=== PATIENT | male | born 1960 | race Caucasian/White ===

== ENCOUNTER 2018-01-10 05:53 | Inpatient (IN) | payer OTHER ==
[2018-01-10] MEDS ORDERED: FAMOTIDINE 20MG TABLET PO ONE (06:00)
[2018-01-10] MEDS ORDERED: ACETAMINOPHEN 1,000 MG/100 ML BTL IV ONE (06:00)
[2018-01-10] MEDS ORDERED: CEFAZOLIN 2 Gram 2 GM/50 ML BAG IVPB ONE (06:00)
[2018-01-10] MEDS ORDERED: METOCLOPRAMIDE 10 MG TABLET PO ONE (06:00)
[2018-01-10] MEDS ORDERED: MECLIZINE 25 MG TABLET PO ONE (06:00)
[2018-01-10] MEDS ORDERED: BUPIVACAINE 0.25% W/EPI MPF 30ML VIAL IVP ONE (10:21)
[2018-01-10] MEDS ORDERED: BUPIVACAINE LIPOSOME 266MG/20ML VIAL IV ONE (10:21)
[2018-01-10] MEDS ORDERED: TRANEXAMIC ACID 1,000 MG/10 ML ML IV ONE (10:21)
[2018-01-10] MEDS: OXYCODONE HCL 5 MG TABLET PO PRN ×3 (10:42→19:32)
[2018-01-10] MEDS ORDERED: OXYCODONE HCL 5 MG TABLET PO PRN (10:45)
[2018-01-10] MEDS ORDERED: ONDANSETRON HCL IV 4 MG/2 ML VIAL IVP PRN (10:45)
[2018-01-10] MEDS ORDERED: MAGNESIUM HYDROXIDE 30 ML UDC PO PRN (10:45)
[2018-01-10] MEDS ORDERED: ZOLPIDEM TARTRATE 5 MG TABLET PO PRN (10:45)
[2018-01-10] MEDS ORDERED: HYDROMORPHONE HCL 1 MG/ML SYRINGE IVP PRN (10:45)
[2018-01-10] MEDS ORDERED: METOCLOPRAMIDE HCL 10 MG/2 ML VIAL IVP PRN (10:45)
[2018-01-10] MEDS ORDERED: TRAMADOL HCL 50 MG TABLET PO PRN (10:45)
[2018-01-10] MEDS ORDERED: OXYCODONE/APAP 7.5MG/325MG TABLET PO PRN (10:45)
[2018-01-10] MEDS ORDERED: SENNOSIDES/DOCUSATE SODIUM UD CAPSULE PO PRN (10:45)
[2018-01-10] MEDS ORDERED: AL HYDROX/MAG HYDROX 30ML UD PO PRN (10:45)
[2018-01-10] MEDS ORDERED: DIPHENHYDRAMINE HCL 25 MG CAPSULE PO PRN (10:45)
[2018-01-10] MEDS ORDERED: TRANEXAMIC ACID 1,000 MG in 0.9 % SODIUM CHLORIDE 100ML 100 ML IVPB ONE (11:00)
[2018-01-10] MEDS ORDERED: HYDROMORPHONE HCL 2 MG/ML VIAL IV ONE (13:07)
--- NOTE | 2018-01-10 13:10 | Operative Note ---
DATE OF SURGERY: 01/10/2018 Surgeon: Jethro Wang DO PREOPERATIVE DIAGNOSIS: Osteoarthritis of the right knee. POSTOPERATIVE DIAGNOSIS: Osteoarthritis of the right knee. OPERATION: Right total knee arthroplasty. Anesthesia: Spinal and general. PROCEDURE: This 57-year-old male was taken to the operating room and placed in the supine position on the operating room table. Spinal anesthetic was induced, but because of patchy uptake of the block, a general anesthetic was also administered. The right lower extremity was elevated, prepped with Hibiclens and draped in the usual sterile fashion. It was exsanguinated and the tourniquet inflated to 300 mmHg. All scrubbed personnel wore personal isolation suits. An anterior longitudinal midline incision was made, followed by a medial parapatellar arthrotomy incision. An intracondylar drill hole was made for the intramedullary alignment dolly and a 6 degree valgus 9 mm cut was made in the distal femur. Wafer of bone was removed. The sizing jig was affixed and a size 70 was seen to be the appropriate size. The 4-in-1 cutting block was then pinned in 3 degrees of external rotation and the appropriate cuts were made. We then directed our attention to the proximal tibia. An extramedullary alignment guide was used to cut the proximal tibia, referencing a 10 mm cut off the lateral tibial plateau. The cutting block was affixed and a 3 degree posterior slope cut was made, after the appropriate alignment had been assured. The wafer of bone was removed. Remnants of the menisci and osteophytes were removed from the posterior aspect of the joint. The patella was subsequently cut and restored to anatomic heights with the 37 x 8.6 mm trial. The stem punch was used on the proximal tibia and the wound copiously irrigated with pulse lavage lactated Ringer's solution. The trial components were inserted and a 10 mm bearing seen to be the appropriate size, giving us full extension, full flexion with good stability. All trial components were then removed and the wound again irrigated with lactated Ringer's solution. Exparel was injected into the posterior medial and lateral corners of the joint and after the insertion of the final components, the remainder was injected into the periosteum and joint capsule , the proximal tibia, and distal femur. All bony surfaces were dried and all components were cemented and excess cement removed after the insertion of each component. Initially the tibial base plate was cemented into place after the stem punch had been used in the proximal tibia and a size 79 determined to be the appropriate size. The 10 mm bearing was affixed and the femoral component cemented, followed by the patella. Once the cement had hardened, the knee was taken through range of motion and the components appeared to be stable. A drain was placed through a separate stab incision. The wound was then closed with 2 Vicryl to reapproximate the joint capsule and quadriceps. The subcutaneous tissue closed with 0 Vicryl and the skin was stapled. Sterile dressings with a Polar Care were applied. The patient was taken to the recovery room in satisfactory condition. The drain had been placed through a separate stab incision. Final components inserted were: A [employer] Vanguard size 70 cruciate retaining femur, 79 tibia base plate, a 10 mm anterior stabilized E1 bearing, and a 37 x 8.6 mm patella. GROSS PATHOLOGY: This patient demonstrated advanced osteoarthritis of the medial compartment with the medial femoral condyle being entirely denuded of articular cartilage and the medial half of the medial tibial plateau also had no articular cartilage. The patella also demonstrated advanced degenerative changes with grade 2 changes noted in the tibial side of the joint. A tear of the medial meniscus was also evident. MTDD
[2018-01-10] MEDS: OXYCODONE/APAP 7.5MG/325MG TABLET PO PRN ×2 (13:45→21:46)
[2018-01-10] MEDS ORDERED: HYDROMORPHONE HCL 2 MG/ML VIAL IV PRN (14:15)
[2018-01-10] MEDS: RINGERS SOLUTION,LACTATED 1,000 ML IV SCH (14:23)
[2018-01-10] MEDS: CEFAZOLIN 2 Gram 2 GM/50 ML BAG IVPB SCH ×2 (15:11→22:29)
[2018-01-10] MEDS: FONDAPARINUX 2.5 MG/0.5 ML SYR SQ SCH (15:12)
--- NOTE | 2018-01-10 15:32 | Rehab Evaluation ---
Patient Information - Patient Information Diagnosis: OA right knee Ordered Treatment: PT Evaluate and Treat Status: Initial Evaluation Surgery: Yes (TKA right) Date of Surgery: 01/10/18 Past Medical/Surgical Hx: PAST MEDICAL/SURGICAL HISTORY Past Surgical History left ACL thyroid sx PMH - Respiratory Hx Respiratory Disorders No PMH - Cardiovascular Hx Cardiovascular Disorders No Exercise Tolerance Good PMH - Neuro Hx Neurological Disorders No PMH - GI Hx Gastrointestinal Disorders Yes Hx Gastroesophageal Reflux Yes: occassionally PMH - Hx Genitourinary Disorders No PMH - Endocrine Hx Endocrine Disorders Yes Hx Thyroid Disease Yes: para thyroid removal one from each side Calcium too high PMH - Musculoskeletal Hx Musculoskeletal Disorders Yes Hx Arthritis Yes Comment: right iknee pain PMH - Psych Hx Psychiatric Problems No PMH - Hematology/Oncology Hx Hematology/Oncology No Disorders Social History: Detail (Lives with girlfriend in two story house. Retired. Has 6 steps to get into house, no rails. Will stay on first floor. Tub/shower combo and standard toilet seat. Girlfriend will help him at home and has therapy set- up already, girlfriend's daughter will drive him (best vehicle for that).) Precautions: [place], Fall - Time With Patient Total Time Spent With Patient (Min): 30 Treatment Procedures: Detail (Patient seen in room, sitting up in bed. After removed CPM, able to work through exercises for knee: quad, ham and glut sets, heel slides, ankle pumps and assisted SLR. Supine to sit with assist with right LE, pivoted out to edge of bed, sat edge of bed without issue, sit to stand with CGA, ambulated with FWW and WBAT to door of room then out of room and did a loop in marcum and came back into room. Back into bed with very minimal assist with right LE, replaced cryocuff, CPM, compressive stockings and pulled tray table close, call light close.) Subjective Information - Subjective Information Per Patient Objective Data - Pain Pain Present: Yes Pain Scale Used: Numeric (1 - 10) (3/10) - Mental Status Patient Orientation: Oriented x3 - Visual Perception Appears within normal limits for therapeutic activities - ROM Within normal limits (except right knee 0 degrees extension to about 60 degrees flexion.) - Strength/Tone Within normal limits (except quads a little weak: 3-/5) - Coordination Appears within normal limits for therapeutic activities - Transfers Needs Assist (Needed slight assist with right LE only.) - Balance Balance Sitting: Good Balance Standing: Good - Sensation Intact - Gait Detail (Used FWW with WBAT today and good technique with walker.) Therapy Assessment - Therapy Assessment Detail (Patient doing quite well. Meds seem to be controlling pain, able to bend knee well even out of CPM. Mobility fairly good so far.) Patient Education - Patient Education Teaching Topic: Equipment Use, Exercise/Activity Response: Return Demonstration Teaching Method: Demonstration Teaching Recipient: Patient, Family Barriers To Learning: None Problem List - Problem List Physical Therapy Problem List: Detail (Decreased independence with mobility, decreased functional distance ambulating, decreased function on steps, decreased ROM knee and strength as expected after surgery.) Goals - Goals Physical Therapy Goals: 1. Patient will be independent with mobility into/ out of bed. 2. Patient will increase distance ambulating to community distances/ household distances. 3. Patient will be able to negotiate steps to get into home with proper assist and device. Prognosis - Prognosis Good (Patient doing well so far.) Plan - Plan Physical Therapy Plan: Continue PT day after surgery BID then will reassess based on patient function and if has met goals if will be seen after that.
[2018-01-11] MEDS: TRAMADOL HCL 50 MG TABLET PO PRN ×3 (01:00→14:45)
[2018-01-11] MEDS: RINGERS SOLUTION,LACTATED 1,000 ML IV SCH ×2 (04:57→05:31)
[2018-01-11 06:31] LABS: HEMATOCRIT 37.4 % (42.0-52.0); HEMOGLOBIN 11.9 gm/dl (14.0-18.0); MEAN CELL VOLUME 79.4 fl (81-97); MEAN CORPUSCULAR HEMOGLOBIN 25.2 pg (27-33); MEAN CORPUSCULAR HGB CONC 31.8 g/dl (32-36); PLATELET COUNT 289 K/uL (130-400); RED BLOOD COUNT 4.71 M/uL (4.40-5.70); RED CELL DISTRIBUTION WIDTH 14.1 % (11.5-14.5); WHITE BLOOD COUNT W/O DIFF 13.6 K/uL (4.2-12.2)
[2018-01-11] MEDS: CEFAZOLIN 2 Gram 2 GM/50 ML BAG IVPB SCH (06:53)
[2018-01-11] MEDS: OXYCODONE/APAP 7.5MG/325MG TABLET PO PRN (10:05)
[2018-01-11] MEDS ORDERED: ACETAMINOPHEN 325 MG TAB PO PRN (10:45)
--- NOTE | 2018-01-11 11:13 | Physical Therapy Tx Note ---
Physical Therapy Tx Note - Treatment Note Tolerated: Good Total Time Spent With Patient: 30 Physical Therapy Tx Note: Detail (The patient was laying in bed upon arrival. The patient was able to transfer from supine to sit and transfer from sit to stand independently. The patient was able to ambulate from his room to the nurse 's station and back (26 ft. x2) using WBAT on R and 2WW . The patient was then able to ascend/descend 3 stairs with min. assist x1 of his girlfriend. He required some verbal cues for proper gait pattern on the stairs and placement of the walker. The patient's HEP was reviewed upon return to his room. The patient was instructed to complete 10 reps of each exercise, 1-2x/day. The HEP included: Ankle Pumps, Heel Slides, LAQ, and SLR. The patient was able to return demonstration and verbalized understanding. The patient was left sitting at the EOB with his girlfriend and his call light in reach) Physical Therapy Problem List: Detail (Decreased independence with mobility, decreased functional distance ambulating, decreased function on steps, decreased ROM knee and strength as expected after surgery.) Physical Therapy Goals: 1. Patient will be independent with mobility into/ out of bed. 2. Patient will increase distance ambulating to community distances/ household distances. 3. Patient will be able to negotiate steps to get into home with proper assist and device. Physical Therapy Plan: Continue PT day after surgery BID then will reassess based on patient function and if has met goals if will be seen after that.
[2018-01-11] MEDS ORDERED: MIDAZOLAM HCL 2MG/2ML VIAL IV ONE (13:35)
[2018-01-11] MEDS ORDERED: SEVOFLURANE 250 ML INH ONE (13:35)
[2018-01-11] MEDS ORDERED: FENTANYL PF 100MCG/2ML VIAL IV ONE (13:35)
[2018-01-11] MEDS ORDERED: HYDROMORPHONE HCL 2 MG/ML VIAL IV ONE (13:35)
[2018-01-11] MEDS ORDERED: ONDANSETRON HCL IV 4 MG/2 ML VIAL IVP ONE (13:35)
--- NOTE | 2018-01-11 13:44 | Rehab Evaluation ---
Patient Information - Patient Information Diagnosis: OA right knee Ordered Treatment: OT Evaluate and Treat Status: Initial Evaluation Surgery: Yes (TKA right) Date of Surgery: 01/10/18 Past Medical/Surgical Hx: PAST MEDICAL/SURGICAL HISTORY Past Surgical History left ACL thyroid sx PMH - Respiratory Hx Respiratory Disorders No PMH - Cardiovascular Hx Cardiovascular Disorders No Exercise Tolerance Good PMH - Neuro Hx Neurological Disorders No PMH - GI Hx Gastrointestinal Disorders Yes Hx Gastroesophageal Reflux Yes: occassionally PMH - Hx Genitourinary Disorders No PMH - Endocrine Hx Endocrine Disorders Yes Hx Thyroid Disease Yes: para thyroid removal one from each side Calcium too high PMH - Musculoskeletal Hx Musculoskeletal Disorders Yes Hx Arthritis Yes Comment: right iknee pain PMH - Psych Hx Psychiatric Problems No PMH - Hematology/Oncology Hx Hematology/Oncology No Disorders Premorbid Status: Detail (Pt lives with girlfriend in a 2 story house, his bedroom in on the second floor. He has 6 steps, no railing at the entrance. He is planning to stay on the first floor initially. Pt has a tub/shower combination, no seat or grab bars and a standard height toilet, no grab bars. His girlfriend will assist with home mgmt, meal prep and laundry. He has a 2 wheeled walker.) Social History: Detail (Supportive girlfriend.) Precautions: [place], Fall - Time With Patient Total Time Spent With Patient (Min): 30 Treatment Procedures: Detail (OT eval low complexity) Subjective Information - Subjective Information Per Patient Objective Data - Pain Pain Present: Yes (01/26) - Mental Status Patient Orientation: Oriented x3 - Visual Perception Appears within normal limits for therapeutic activities - ROM Within normal limits (Chepe UE AROM WNL) - Strength/Tone Within normal limits (Chepe UE strength WNL) - Coordination Appears within normal limits for therapeutic activities - Bed Mobility Independent (Ind with supine to sit) - Transfers Independent (Ind with sit to stand) - Balance Balance Sitting: Good Balance Standing: Good - Sensation Intact - ADL's/IADL's Detail (Pt educated and demonstrated learning of modified LE dressing techniques and verbalized understanding of shower safety and IADL modifications. ) Therapy Assessment - Therapy Assessment Detail (Pt Ind with LE dressing, WNL UE function and functional mobility.) Problem List - Problem List Physical Therapy Problem List: Detail (Decreased independence with mobility, decreased functional distance ambulating, decreased function on steps, decreased ROM knee and strength as expected after surgery.) Occupational Therapy Problem List: Detail (No current OT problems identified.) Goals - Goals Physical Therapy Goals: 1. Patient will be independent with mobility into/ out of bed. 2. Patient will increase distance ambulating to community distances/ household distances. 3. Patient will be able to negotiate steps to get into home with proper assist and device. Occupational Therapy Goals: No cuurent OT goals identified. Prognosis - Prognosis Good Plan - Plan Physical Therapy Plan: Continue PT day after surgery BID then will reassess based on patient function and if has met goals if will be seen after that. Occupational Therapy Plan: No further IP OT recommended at this time. Thank you for this referral.
--- NOTE | 2018-01-11 14:20 | Physical Therapy Tx Note ---
Physical Therapy Tx Note - Treatment Note Tolerated: Good Total Time Spent With Patient: 15 Physical Therapy Tx Note: Detail (The patient was laying in bed upon arrival. The patient was able to transfer from supine to sit independently, and was able to transfer from sit to stand independently. The patient was also able to put his shoes on in standing without assistance. He was able to walk from his room to the nurse's station with supervision (about 30 feet). He was then able to ascend and descend 3 stairs with CGA x1 and some verbal cues for proper walker placement on steps. It was determined that he will use another entrance into his home that has less steps, as the planned entrance had 6 steps. He was able to ambulate back to his room from the nurse's station with supervision, and was independent with transfers back to bed. He was left sitting at the EOB with his girlfriend present and call light in reach.) Physical Therapy Problem List: Detail (Decreased independence with mobility, decreased functional distance ambulating, decreased function on steps, decreased ROM knee and strength as expected after surgery.) Physical Therapy Goals: 1. Patient will be independent with mobility into/ out of bed - MET. 2. Patient will increase distance ambulating to community distances/household distances - Household distances - MET. 3. Patient will be able to negotiate steps to get into home with proper assist and device - MET Prognosis: Good Physical Therapy Plan: The patient has met current inpatient physical therapy goals. Will continue PT in the outpatient setting beginning next week.
[2018-01-11] MEDS: FONDAPARINUX 2.5 MG/0.5 ML SYR SQ SCH (14:49)
--- NOTE | 2018-01-14 10:40 | Discharge Summary ---
DATE OF ADMISSION: 01/10/2018 DATE OF DISCHARGE: 01/11/2018 SURGEON: Jethro Wang DO ADMITTING DIAGNOSIS: Osteoarthritis of the right knee. DISCHARGE DIAGNOSIS: Osteoarthritis of the right knee. OPERATIVE PROCEDURE: Elective right total knee arthroplasty. HISTORY OF PRESENT ILLNESS: This 57-year-old male was admitted to the hospital for elective total knee arthroplasty and tolerated the operative procedure well. The patient had the drain removed the first postoperative day and cleared physical therapy. The pain was controlled, no sign of DVT. He was discharged with instructions to follow up in the clinic in 2 weeks for staple removal. He will have outpatient physical therapy. Routine wound care instructions were given. He will take aspirin 325 mg daily, Percocet 7.5/325, 1 or 2 every 6 hours as necessary for pain, alternating with Tramadol 50 mg 1 or 2 every 6 hours as necessary for pain. He was given 60. He will wear his VARINDER hose during the day and remove them at night. Use the Polar Care device as needed. DAMIAN
== END 2018-01-11 15:15 | disposition home or self-care (01) | DRG 470 ==
LOC: MEDSURG 05:53
PROVIDERS: ADMIT Orthopaedic Surgery; ATTEND Orthopaedic Surgery
PROC: 0SRC069 Replacement of Right Knee Joint with Oxidized Zirconium on Polyethylene Synthetic Substitute, Cemented, Open Approach (ICD-10-PCS; principal; 2018-01-10 08:00)
DX: M17.11 Unilateral primary osteoarthritis, right knee (principal)
CPT/HCPCS: 85025; 93005; 93010; 94761; 97110; 97165; 97530; J2405; J7120

== ENCOUNTER 2018-09-13 09:00 | Inpatient (IN) | payer OTHER ==
[2018-09-19] MEDS ORDERED: FAMOTIDINE 20MG TABLET PO ONE (06:00)
[2018-09-19] MEDS ORDERED: METOCLOPRAMIDE 10 MG TABLET PO ONE (06:00)
[2018-09-19] MEDS ORDERED: CELECOXIB 100 MG CAPSULE PO ONE (06:00)
[2018-09-19] MEDS ORDERED: MECLIZINE 25 MG TABLET PO ONE (06:00)
[2018-09-19] MEDS ORDERED: HYDROCODONE/APAP 5/325MG TABLET PO PRN ×2 (09:44)
[2018-09-19] MEDS ORDERED: OXYCODONE HCL/APAP 5MG/325MG TABLET PO PRN (09:44)
[2018-09-19] MEDS ORDERED: SENNOSIDES/DOCUSATE SODIUM UD CAPSULE PO PRN (09:45)
[2018-09-19] MEDS ORDERED: NALOXONE 0.4 MG/1 ML VIAL IVP PRN (09:45)
[2018-09-19] MEDS ORDERED: MAGNESIUM HYDROXIDE 30 ML UDC PO PRN (09:45)
[2018-09-19] MEDS ORDERED: DIPHENHYDRAMINE HCL 25 MG CAPSULE PO PRN (09:45)
[2018-09-19] MEDS ORDERED: ONDANSETRON HCL IV 4 MG/2 ML VIAL IVP PRN (09:45)
[2018-09-19] MEDS ORDERED: ZOLPIDEM TARTRATE 5 MG TABLET PO PRN (09:45)
[2018-09-19] MEDS ORDERED: AL HYDROX/MAG HYDROX 30ML UD PO PRN (09:45)
[2018-09-19] MEDS ORDERED: TRAMADOL HCL 50 MG TABLET PO PRN (09:45)
[2018-09-19] MEDS ORDERED: METOCLOPRAMIDE HCL 10 MG/2 ML VIAL IVP PRN (09:45)
[2018-09-19] MEDS: CEFAZOLIN 2 Gram 2 GM/50 ML BAG IVPB ONE ×2 (09:53→15:49)
[2018-09-19] MEDS: RINGERS SOLUTION,LACTATED 1,000 ML IV SCH ×2 (10:57→23:03)
[2018-09-19] MEDS ORDERED: TRANEXAMIC ACID 1,000 MG in 0.9 % SODIUM CHLORIDE 100ML 100 ML IVPB ONE (11:00)
[2018-09-19] MEDS ORDERED: BUPIVACAINE 0.25% W/EPI MPF 30ML VIAL IVP ONE (11:01)
[2018-09-19] MEDS: HYDROMORPHONE HCL 2 MG/ML VIAL IV PRN ×3 (11:19→18:45)
[2018-09-19] MEDS ORDERED: LIDOCAINE 2% MDV (20MG/ML) 20ML VIAL IV ONE (11:33)
[2018-09-19] MEDS ORDERED: FENTANYL PF 100MCG/2ML VIAL IV ONE (11:33)
[2018-09-19] MEDS ORDERED: PROPOFOL 10 MG/ML VIAL IV ONE ×2 (11:33→15:12)
[2018-09-19] MEDS ORDERED: MIDAZOLAM HCL 2MG/2ML VIAL IV ONE (11:33)
[2018-09-19] MEDS ORDERED: RINGERS SOLUTION,LACTATED 1,000 ML IV PRN (12:20)
[2018-09-19] MEDS: OXYCODONE HCL/APAP 5MG/325MG TABLET PO PRN ×2 (13:27→20:24)
[2018-09-19] MEDS ORDERED: ROPIVACAINE HCL (NAROPIN) /PF 5MG/ML 20ML VIAL IV ONE (13:37)
[2018-09-19] MEDS ORDERED: BUPIVACAINE LIPOSOME 266MG/20ML VIAL IV ONE (13:37)
[2018-09-19] MEDS ORDERED: DEXAMETHASONE 4 MG/ML 1ML VIAL IVP ONE (13:37)
--- NOTE | 2018-09-19 14:25 | Rehab Evaluation ---
Patient Information - Patient Information Diagnosis: OA L knee Ordered Treatment: PT Evaluate and Treat Status: Initial Evaluation Surgery: Yes (L TKA) Date of Surgery: 09/19/18 History: Detail (Pt experienced progressive degeneration of L knee. L TKA was a planned procedure.) Past Med/Negrita Hx Detail: Detail Past Medical/Surgical Hx: PAST MEDICAL/SURGICAL HISTORY Past Surgical History RTKA 01-10-18 left ACL thyroid sx PMH - Respiratory Hx Respiratory Disorders No PMH - Cardiovascular Hx Cardiovascular Disorders No Exercise Tolerance Good PMH - Neuro Hx Neurological Disorders No PMH - GI Hx Gastrointestinal Disorders Yes Hx Gastroesophageal Reflux Yes: occassionally PMH - Hx Genitourinary Disorders No PMH - Endocrine Hx Endocrine Disorders Yes Hx Thyroid Disease Yes: para thyroid removal one from each side Calcium too high PMH - Musculoskeletal Hx Musculoskeletal Disorders Yes Hx Arthritis Yes Comment: left knee pain PMH - Psych Hx Psychiatric Problems No PMH - Hematology/Oncology Hx Hematology/Oncology No Disorders Premorbid Status: Detail (Pt had undergone R TKA in Dec 2017 with a good outcome.) Social History: Detail (Pt lives in two story home with significant other. Pt has 6 steps to enter with a handrail on the L side. Pt has tub/shower and standard toilet without grab bars. Pt currently owns a RW and a cane.) Precautions: [place], Fall - Time With Patient Total Time Spent With Patient (Min): 50 Treatment Procedures: Detail (PT evaluation, mobility training, and initiated gait and Ther Ex.) Subjective Information - Subjective Information Per Patient (Pt reports that he has sensation to his legs, and has minimal pain. ) Objective Data - Pain Pain Present: Yes Pain Intensity: 5 Pain Scale Used: Numeric (1 - 10) - Mental Status Patient Orientation: Oriented x3 - Visual Perception Appears within normal limits for therapeutic activities - ROM Not within normal limits (Decreased L knee flexion and extension. Pt currently on CPM set 0-60 degrees.) - Strength/Tone Not within normal limits (Decreased L hip flexion, knee flexion/extension.) - Coordination Appears within normal limits for therapeutic activities - Bed Mobility Needs Assist (Pt performed sup<>sit with use of bed rails, overhead trapeze, HOB elevated 30 degrees and min A for LLE assist.) - Transfers Needs Assist (Pt performed sit<>stand with RW and min A for balance and steadying. Verbal cues given for technique.) - Balance Balance Sitting: Good Balance Standing: Good (Good standing balance with RW, however, pt demonstrated poor standing balance without UE support.) - Sensation Intact (Intact with light touch.) - Gait Detail (Pt amb 100' with RW and CGA/min A for steadying and safety. Pt amb with step-to pattern, decreased weight shift to L, and heavy reliance on UE. Pt without LOB or knee buckling. Reported mild lightheadedness that resolved.) - Special Tests No Therapy Assessment - Therapy Assessment Detail (Strength and ROM deficits consistant with procedure. Pt is a good candidate for PT.) Patient Education - Patient Education Teaching Topic: Equipment Use, Exercise/Activity, Precautions Response: Verbalize Understanding Teaching Method: Discussion Teaching Recipient: Patient, Significant Other Barriers To Learning: None Problem List - Problem List Physical Therapy Problem List: Detail (Pt requires assist with bed mobility/ transfers. Pt demonstrates impaired gait mechanics.) Goals - Goals Physical Therapy Goals: 1) Pt will perform bed mobility without use of bed rails and SBA for safety. 2) Pt will perform sit<>stand with supervision for safety. 3) Pt will amb 150' with RW and CGA for safety. 4) Pt will ascend/ descend 6 steps with 1 UE support and min A for steadying and safety. 5) Pt will demonstrate good understanding of HEP. Prognosis - Prognosis Good Plan - Plan Physical Therapy Plan: Pt will be seen 1-2 times tomorrow to address current impairments to facilitate safe return to home.
[2018-09-19] MEDS: CEFAZOLIN 2 Gram 2 GM/50 ML BAG IVPB SCH ×2 (15:56→23:03)
[2018-09-19] MEDS: ASPIRIN 325 MG TAB ENTERIC-COATED PO SCH (22:12)
[2018-09-19] MEDS: TRAMADOL HCL 50 MG TABLET PO PRN (23:02)
[2018-09-20] MEDS: OXYCODONE HCL/APAP 5MG/325MG TABLET PO PRN ×2 (02:05→08:03)
[2018-09-20] MEDS: RINGERS SOLUTION,LACTATED 1,000 ML IV SCH (05:34)
[2018-09-20 06:23] LABS: HEMATOCRIT 36.5 % (42.0-52.0); HEMOGLOBIN 11.8 gm/dl (14.0-18.0); MEAN CELL VOLUME 78.5 fl (81-97); MEAN CORPUSCULAR HGB CONC 32.3 g/dl (32-36); PLATELET COUNT 241 K/uL (130-400); RED BLOOD COUNT 4.65 M/uL (4.40-5.70); WHITE BLOOD COUNT W/O DIFF 16.7 K/uL (4.2-12.2)
[2018-09-20 06:28] LABS: MEAN CORPUSCULAR HEMOGLOBIN 25.3 pg (27-33)
[2018-09-20] MEDS: CEFAZOLIN 2 Gram 2 GM/50 ML BAG IVPB SCH (06:33)
[2018-09-20] MEDS ORDERED: ACETAMINOPHEN 325 MG TAB PO PRN (09:45)
[2018-09-20] MEDS ORDERED: CELECOXIB 100 MG CAPSULE PO SCH (10:00)
--- NOTE | 2018-09-20 10:02 | Rehab Evaluation ---
Patient Information - Patient Information Diagnosis: OA L knee Ordered Treatment: OT Evaluate and Treat Status: Initial Evaluation Surgery: Yes (L TKA) Date of Surgery: 09/19/18 History: Detail (Pt experienced progressive degeneration of L knee. L TKA was a planned procedure.) Past Medical/Surgical Hx: PAST MEDICAL/SURGICAL HISTORY Past Surgical History RTKA 01-10-18 left ACL thyroid sx PMH - Respiratory Hx Respiratory Disorders No PMH - Cardiovascular Hx Cardiovascular Disorders No Exercise Tolerance Good PMH - Neuro Hx Neurological Disorders No PMH - GI Hx Gastrointestinal Disorders Yes Hx Gastroesophageal Reflux Yes: occassionally PMH - Hx Genitourinary Disorders No PMH - Endocrine Hx Endocrine Disorders Yes Hx Thyroid Disease Yes: para thyroid removal one from each side Calcium too high PMH - Musculoskeletal Hx Musculoskeletal Disorders Yes Hx Arthritis Yes Comment: left knee pain PMH - Psych Hx Psychiatric Problems No PMH - Hematology/Oncology Hx Hematology/Oncology No Disorders Premorbid Status: Detail (Pt had undergone R TKA in Dec 2017 with a good outcome.) Social History: Detail (Pt lives in a two story home with significant other. Pt has 4 steps to enter with a handrail on the L side part way up. His bedroom is on the second floor. Pt has a tub/shower and standard toilet without grab bars. Pt currently owns a 2 wheeled walker, commode and a cane. His significant other is responsible for home mgmt, meal prep and laundry.) Precautions: [place], Fall - Time With Patient Total Time Spent With Patient (Min): 30 Treatment Procedures: Detail (OT eval low complexity) Subjective Information - Subjective Information Per Patient Objective Data - Pain Pain Present: Yes (01/26) - Mental Status Patient Orientation: Oriented x3 - Visual Perception Appears within normal limits for therapeutic activities - ROM Within normal limits (Chepe UE AROM WNL) - Strength/Tone Within normal limits (Chepe UE strength WNL) - Coordination Appears within normal limits for therapeutic activities - Bed Mobility Independent (Ind with supine to sit) - Transfers Independent (Ind with sit to stand) - Balance Balance Sitting: Good Balance Standing: Good - Sensation Intact - Gait Detail (Pt ambulating in room with 2 wheeled walker Indly.) - ADL's/IADL's Detail (Pt educated and able to demonstrate modified LE dressing techniques including doffing briefs, donning boxer shorts, sweatpants and slip on tennis shoes. Reviewed VARINDER hose techniques, pt and S.O. verbalized learning. Pt has no concerns about shower set up.) Therapy Assessment - Therapy Assessment Detail (Pt safe and Ind with modified LE dressing techniques.) Problem List - Problem List Physical Therapy Problem List: Detail (Pt requires assist with bed mobility/ transfers. Pt demonstrates impaired gait mechanics.) Occupational Therapy Problem List: Detail (No current OT problems identified.) Goals - Goals Physical Therapy Goals: 1) Pt will perform bed mobility without use of bed rails and SBA for safety. 2) Pt will perform sit<>stand with supervision for safety. 3) Pt will amb 150' with RW and CGA for safety. 4) Pt will ascend/ descend 6 steps with 1 UE support and min A for steadying and safety. 5) Pt will demonstrate good understanding of HEP. Occupational Therapy Goals: No current OT goals identified at this time. Prognosis - Prognosis Good Plan - Plan Physical Therapy Plan: Pt will be seen 1-2 times tomorrow to address current impairments to facilitate safe return to home. Occupational Therapy Plan: No further IP OT goals identified. Thank you for this referral.
[2018-09-20] MEDS: ASPIRIN 325 MG TAB ENTERIC-COATED PO SCH (10:17)
--- NOTE | 2018-09-20 10:20 | Operative Note ---
DATE OF SURGERY: 09/19/2018 Surgeon: Jethro Wang DO PREOPERATIVE DIAGNOSIS: Primary osteoarthritis of the left knee. POSTOPERATIVE DIAGNOSIS: Primary osteoarthritis of the left knee. OPERATION: Left total knee arthroplasty. Anesthesia: Spinal. PROCEDURE: This 57-year-old male was taken to the operating room and placed in the supine position on the operating room table. Spinal anesthesia was induced by the Department of Anesthesia. Following satisfactory anesthetic, the left lower extremity was elevated, it was prepped with Hibiclens and draped in the usual sterile fashion. It was exsanguinated and the tourniquet inflated to 300 mmHg. All scrubbed personnel wore personal isolation suits. An anterior longitudinal midline incision was made, utilizing the previous incision from the ACL reconstruction and the soft tissue was dissected to expose the extensor mechanism. A medial parapatellar arthrotomy incision was performed. The intracondylar drill hole was used for the intramedullary alignment dolly and a 6 degree valgus 9 mm cut was made in the distal femur and the wafers of bone were removed. Subsequently, the sizing jig was affixed and pinned in 3 degrees of external rotation. The appropriate cuts were made and the wafer of bone was removed. The extra-medullary tibia guide was used to set the cutting block for the proximal tibial cut. We referenced a 10 mm cut off the lateral tibial plateau, however, it was necessary for us to take an additional 2 mm of bone, and even this wasn't quite enough, therefore it required an additional 2 mm, so a total of 14 removed and this got us down to what appeared to be healthy subchondral bone, but still extremely sclerotic. A 3 degree posterior slope cut was made. Remnants of the menisci and osteophytes were removed from the posterior aspect of the joint. Because the interference screw from previous ACL reconstruction was in the way, it was necessary for us to remove that screw so the anterior aspect of the tibia was exposed to remove the Arthrex screw in the proximal tibia. This was backed out without difficulty and the wound copiously irrigated with pulse lavage and lactated Ringer's solution. The trial components were inserted and a size 70 femur 83 tibia and a 10 mm poly with a 37 x 8.6 mm patella trial, gave us mu-ism of anatomic height of the patella and stability of the knee throughout. The knee trial components were removed and the wound again copiously irrigated with pulse lavage and lactated Ringer's solution. A stem punch was used for the proximal tibia and the hole from the interference screw was filled with bone graft from the cut undersurface of the tibial wafer. All components were cemented into place and excess cement was removed after the insertion of each component and subsequently we cemented a size 83 tibial base plate, which was followed by the insertion of the 10 mm anterior stabilized A1 bearing, subsequently the femur was cemented and finally the patella. All excess cement was removed. The Exparel was injected into the posterior, medial, and lateral corners of the joint, as well as the periosteum and joint capsule, the proximal tibia, and distal femur. A drain was placed through a separate stab incision and the arthrotomy incision was closed with 2 Vicryl, the subcutaneous tissue closed with 0 Vicryl, the skin was stapled. Sterile dressings were applied with a Polar Care. The patient was taken to the recovery room in satisfactory condition. GROSS PATHOLOGY: A very severe medial compartment osteoarthritis was present. Full-thickness articular cartilage loss was present both in the medial and lateral femoral condyles, as well as the medial tibial plateau. Contracture of the knee was noted secondary to the previous surgical procedures. Final components inserted were: A [employer] Vanguard size 70, cruciate retaining femoral component, a size 83 tibial base plate, a 10 mm anterior stabilized E1 bearing, and a 37 x 8.6 mm patella was used. [facility]PITALFranky
--- NOTE | 2018-09-20 11:16 | Physical Therapy Tx Note ---
Physical Therapy Tx Note - Treatment Note Tolerated: Good Total Time Spent With Patient: 25 Physical Therapy Tx Note: Detail (The patient ambulated with front wheeled walker a distance of 250 feet x 1,WBAT on the L LE. The patient ambulated on 3 steps, and 7 steps using folded walker and railing using proper techinque with supervision for safety only. The patient was independent with supine to and from sit transfer and sit to and from stand transfer. The patient was independent with a HEP of supine heel slides, SLR, ankle pumps, quad sets, gluteal set and hamstring sets. The patient has met all inpatient PT goals and is discharged from inpatient PT.) Physical Therapy Problem List: Detail (Pt requires assist with bed mobility/ transfers. Pt demonstrates impaired gait mechanics.) Physical Therapy Goals: 1) Pt will perform bed mobility without use of bed rails and SBA for safety.(Goal Met). 2) Pt will perform sit<>stand with supervision for safety.(Goal Met). 3) Pt will amb 150' with RW and CGA for safety.(Goal Met). 4) Pt will ascend/descend 6 steps with 1 UE support and min A for steadying and safety. (Goal Met). 5) Pt will demonstrate good understanding of HEP.(Goal Met) Physical Therapy Plan: Pt will be seen 1-2 times tomorrow to address current impairments to facilitate safe return to home.
[2018-09-20] MEDS: TRAMADOL HCL 50 MG TABLET PO PRN (11:17)
--- NOTE | 2018-09-20 11:29 | Physical Therapy Tx Note ---
Physical Therapy Tx Note - Treatment Note Physical Therapy Tx Note: Detail (addendum to previous note. view plan.) Physical Therapy Problem List: Detail (Pt requires assist with bed mobility/ transfers. Pt demonstrates impaired gait mechanics.) Physical Therapy Goals: 1) Pt will perform bed mobility without use of bed rails and SBA for safety.(Goal Met). 2) Pt will perform sit<>stand with supervision for safety.(Goal Met). 3) Pt will amb 150' with RW and CGA for safety.(Goal Met). 4) Pt will ascend/descend 6 steps with 1 UE support and min A for steadying and safety. (Goal Met). 5) Pt will demonstrate good understanding of HEP.(Goal Met) Physical Therapy Plan: All inpatient PT goals have been met. The patient is discharged from inpatient PT.
--- NOTE | 2018-09-23 11:40 | Discharge Summary ---
DATE OF ADMISSION: 09/19/2018 DATE OF DISCHARGE: 09/20/2018 ADMITTING DIAGNOSIS: Osteoarthritis of the left knee. DISCHARGE DIAGNOSIS: Osteoarthritis of the left knee. OPERATIVE PROCEDURE: Elective left total knee arthroplasty. DESCRIPTION. This 57-year-old male was admitted to the hospital for elective total knee arthroplasty. Tolerated the operative procedure well. Progressed satisfactorily with physical therapy and did not show any evidence of complication from the surgery. No calf pain, shortness of breath, or chest pain. He did clear physical therapy the first postoperative day. Drain had also been removed. The patient will be discharged to follow up in the clinic in 2 weeks. Routine wound care instructions were given. He will wear his VARINDER hose during the day and remove them at night. He was instructed to take aspirin 325 mg a day. He will take Percocet 5/325, #60, 1 every 4 hours as necessary for pain. He was given a prescription for Ultram 50 mg 1-2 q.6 h. p.r.n. pain and he was given 60. Outpatient physical therapy is scheduled. Should he have any problems prior to being seen, he was instructed to call my office. DAMIAN
== END 2018-09-20 13:15 | disposition home or self-care (01) | DRG 470 ==
LOC: EDSTATUS 09:00 → MEDSURG 09-19 05:31
PROVIDERS: ADMIT Orthopaedic Surgery; ATTEND Orthopaedic Surgery
PROC: 0SRD069 Replacement of Left Knee Joint with Oxidized Zirconium on Polyethylene Synthetic Substitute, Cemented, Open Approach (ICD-10-PCS; principal; 2018-09-19 07:30)
DX: M17.12 Unilateral primary osteoarthritis, left knee (principal)
CPT/HCPCS: 76942; 85025; 97110; 97530; J7120